=== PATIENT | male | born 1980 | race Hispanic/Latino ===

== ENCOUNTER 2019-01-11 04:43 | Emergency (ER) | payer BC, OTHER ==
[~2019-01-11] VITALS: Ht 170.2 cm; Wt 74.8 kg
--- NOTE | 2019-01-11 05:22 | Diagnostic Imaging Report ---
EXAMINATION: Head CT HISTORY: Right-sided numbness, right facial droop, neck pain for last 2 days COMPARISON: None. TECHNIQUE: Multidetector axial images were obtained without contrast from the foramen magnum to the vertex . The images were reconstructed using brain and bone algorithms. Thin section brain images were reformatted into coronal and sagittal planes. Image quality: Motion/streaking artifact limits the evaluation of the skull base and posterior cranial fossa. Dose modulation, iterative reconstruction, and/or weight based adjustment of the mA/kV was utilized to reduce the radiation dose to as low as reasonably achievable. FINDINGS: Parenchyma: 1. No abnormal densities. 2. No mass or hemorrhage. No CT evidence of acute territorial vascular insult. Extra-axial spaces:No abnormal density. No extra-axial fluid collections Brain volume: Normal for age. Ventricles: Minimal asymmetry of the temporal horn, right versus left inlet prominent, which may be related to volume loss of the right medial temporal lobe versus a normal variation of the anatomy. Arteries: No density suggestive of thrombus. Dural sinuses: No abnormal density. Extra-axial spaces: No abnormal density. Foramen magnum: No mass, Chiari malformation, or basilar invagination. Sella: No obvious mass. Paranasal/mastoid sinuses: Imaged portions unremarkable. Skull/Scalp: No lytic or blastic lesions. No fractures. IMPRESSION: No acute intracranial abnormalities, particularly no hemorrhagic or large acute territorial cortical infarct. Signed by: Dr. Jesenia Chacon M.D. on 01/11/2019 5:19 AM
[2019-01-11 05:45] VITALS: BP 113/86
== END 2019-01-11 05:46 | disposition home or self-care (01) ==
LOC: ER 04:43
DX: G51.0 Bell's palsy (principal)
CPT/HCPCS: 70450; 99283